=== PATIENT | female | born 1955 | race Caucasian/White ===

== ENCOUNTER 2018-06-14 18:27 | Emergency (ER) | payer BC, OTHER ==
[2018-06-14] MEDS ORDERED: NITROGLYCERIN 0.4MG SL TABLET #25 BTL SL ONE (18:49)
[2018-06-14] MEDS ORDERED: ASPIRIN 81 MG CHEWABLE TABLET PO ONE (18:49)
--- NOTE | 2018-06-14 18:58 | Emergency Department Record ---
History of Present Illness - General Chief Complaint: Chest Pain Stated Complaint: CHEST PAIN Time Seen by Provider: 06/14/18 18:40 Source: Patient Mode of Arrival: Ambulatory Limitations: No limitations - History of Present Illness Initial Comments: pt was at work when she felt a fluttering in her chest and heaviness along with sob. this waxed and waned all day. she has no hx of the same. no reent trips , surgeries or leg pain MD Complaint: Chest pain -: Hour(s) Onset: During rest Pain Location: Left chest Quality: Heaviness Consistency: Intermittent Improves With: Nothing Worsens With: Nothing Treatments Prior to Arrival: Aspirin Treatment Prior to Arrival Comment:: 3-81 mg aspirin - Related Data On Oral Contraceptives: No Home Medications Medication Instructions Recorded Confirmed Last Taken Ascorbic Acid [Vitamin C] 500 mg PO DAILY 06/14/18 06/14/18 06/14/18 Aspirin [Aspir-Low] 81 mg PO DAILY 06/14/18 06/14/18 06/14/18 Cholecalciferol (Vitamin D3) 5,000 unit PO DAILY 06/14/18 06/14/18 06/14/18 [Vitamin D3] Dapagliflozin Propanediol [Farxiga] 5 mg PO DAILY 06/14/18 06/14/18 06/14/18 Dulaglutide [Trulicity] 1 vial SQ WEEKLY 06/14/18 06/14/18 Unknown Fenofibrate,Micronized 134 mg PO DAILY 06/14/18 06/14/18 06/14/18 [Fenofibrate] Glucosam/George-Msm1/C/Olman/Bosw 1 tab PO DAILY 06/14/18 06/14/18 06/14/18 [Osteo Bi-Flex] Insulin Degludec [Tresiba 84 units SQ DAILY 06/14/18 06/14/18 06/13/18 Flextouch U-200] Lisinopril 10 mg PO DAILY 06/14/18 06/14/18 06/14/18 Metformin HCl 1,000 mg PO BID 06/14/18 06/14/18 06/14/18 Mercedes-3 Fatty Acids/Fish Oil [Fish 1 each PO DAILY 06/14/18 06/14/18 06/14/18 Oil 1,000 mg Capsule] Rosuvastatin Calcium [Crestor] 40 mg PO DAILY 06/14/18 06/14/18 06/14/18 Allergies Allergy/AdvReac Type Severity Reaction Status Date / Time tetracycline [TETRACYCLINE] Allergy Unknown passed out Verified 06/14/18 18:57 Travel Screening - Travel/Exposure Within Last 30 Days Have you traveled within the last 30 days?: No Review of Systems Reviewed: No additional complaints except as noted below Constitutional: Reports: As per HPI. Denies: Chills, Fever, Malaise, Night sweats, Weakness, Weight change Eyes: Reports: As per HPI. Denies: Eye discharge, Eye pain, Photophobia, Vision change ENT: Reports: As per HPI. Denies: Congestion, Dental pain, Ear pain, Epistaxis , Hearing loss, Throat pain Respiratory: Reports: As per HPI. Denies: Cough, Dyspnea, Hemoptysis, Stridor, Wheezes Cardiovascular: Reports: As per HPI. Denies: Arrhythmia, Chest pain, Dyspnea on exertion, Edema, Murmurs, Orthopnea, Palpitations, Paroxysmal nocturnal dyspnea, Rheumatic Fever, Syncope Endocrine: Reports: As per HPI. Denies: Fatigue, Heat or cold intolerance, Polydipsia, Polyuria Gastrointestinal: Reports: As per HPI. Denies: Abdominal pain, Constipation, Diarrhea, Hematemesis, Hematochezia, Melena, Nausea, Vomiting Genitourinary: Reports: As per HPI. Denies: Abnormal menses, Discharge, Dyspareunia, Dysuria, Frequency, Hematuria, Incontinence, Retention, Urgency Musculoskeletal: Reports: As per HPI. Denies: Arthralgia, Back pain, Gout, Joint swelling, Myalgia, Neck pain Skin: Reports: As per HPI. Denies: Bruising, Change in color, Change in hair/ nails, Lesions, Pruritus, Rash Neurological: Reports: As per HPI. Denies: Abnormal gait, Confusion, Headache, Numbness, Paresthesias, Seizure, Tingling, Tremors, Vertigo, Weakness Psychiatric: Reports: As per HPI. Denies: Anxiety, Auditory hallucinations, Depression, Homicidal thoughts, Suicidal thoughts, Visual hallucinations Hematological/Lymphatic: Reports: As per HPI. Denies: Anemia, Blood Clots, Easy bleeding, Easy bruising, Swollen glands Past Medical History - SOCIAL HISTORY Smoking Status: Never smoker Alcohol Use: None Drug Use: None - RESPIRATORY Hx Respiratory Disorders: No - CARDIOVASCULAR Hx Cardio Disorders: Yes Hx Vascular Disease: Yes - NEURO Hx Neuro Disorders: No - GI Hx GI Disorders: Yes Hx Reflux: Yes - Hx Genitourinary Disorders: No - ENDOCRINE Hx Endocrine Disorders: Yes Hx Diabetes: Yes Comment:: Goiter on neck - MUSCULOSKELETAL Hx Musculoskeletal Disorders: Yes Hx Arthritis: Yes - PSYCH Hx Psych Problems: No - HEMATOLOGY/ONCOLOGY Hx Hematology/Oncology Disorders: Yes Hx Cancer: Yes (skin) Family Medical History Any Significant Family History?: Yes Hx Alcohol Use: Mother, Brother/Sister Hx Cancer: Mother Hx HTN: Mother, Brother/Sister Hx Resp Disorders: Mother Physical Exam - General General Appearance: Alert, Oriented x3, Cooperative, No acute distress - Head Head exam: Normal inspection - Eye Eye exam: Normal appearance, PERRL, EOMI Pupils: Normal accommodation - ENT ENT exam: Normal exam, Mucous membranes moist, Normal external ear exam, Normal orophraynx Ear exam: Normal external inspection. negative: External canal tenderness Nasal Exam: Normal inspection. negative: Discharge, Sinus tenderness Mouth exam: Normal external inspection, Tongue normal Teeth exam: Normal inspection. negative: Dental caries Throat exam: Normal inspection. negative: Tonsillar erythema, Tonsillar exudate - Neck Neck exam: Normal inspection, Full ROM. negative: Tenderness - Respiratory Respiratory exam: Normal lung sounds bilaterally. negative: Respiratory distress - Cardiovascular Cardiovascular Exam: Regular rate, Normal rhythm, Normal heart sounds - GI/Abdominal GI/Abdominal exam: Soft, Normal bowel sounds. negative: Tenderness - Rectal Rectal exam: Deferred - exam: Deferred - Extremities Extremities exam: Normal inspection, Full ROM, Normal capillary refill. negative: Tenderness - Back Back exam: Reports: Normal inspection, Full ROM. Denies: Muscle spasm, Rash noted, Tenderness - Neurological Neurological exam: Alert, CN II-XII intact, Normal gait, Oriented X3 - Psychiatric Psychiatric exam: Normal affect, Normal mood - Skin Skin exam: Dry, Intact, Normal color, Warm Course Vital Signs 06/14/18 18:28 Temperature 98.1 F Pulse Rate 65 Respiratory 20 Rate Blood Pressure 151/92 Pulse Ox 96 - Reevaluation(s) Reevaluation #1: 06/14/18 23:40 ntg did not effect heaviness. it remained a 1/10 and later resolved Medical Decision Making - Lab Data Result diagrams: 06/14/18 18:45 12/20/18 18:45 Disposition Disposition: Discharge Clinical Impression: Palpitations, Chest pressure Disposition: Home, Self-Care Condition: (1) Good Instructions: Chest Pain (ED), Heart Palpitations (ED) Additional Instructions: follow up with dr nassar and family doctor marixa. return sooner if worse. continue aspirin. Referrals: LUCERO NASSAR M.D. [MEDICAL DOCTOR] - Forms: Patient Portal Access Quality - Quality Measures Quality Measures: N/A - Blood Pressure Screening Does Patient Have Any of the Following: Active Dx of HTN Blood Pressure Classification: Hypertensive Reading Systolic Measurement: 151 Diastolic Measurement: 92 Screening for High Blood Pressure: Patient Exclusion, Hx of HTN [[id number]]
[2018-06-14 19:10] LABS: BASO % 0.3 % (0-6); EOS % 2.2 % (0-6); GRAN % 49.7 % (47-80); HEMATOCRIT 42.4 % (35.0-47.0); HEMOGLOBIN 13.8 gm/dl (11.6-16.0); LYMPH % 40.7 % (16-45); MEAN CELL VOLUME 92.2 fl (81-97); MEAN CORPUSCULAR HGB CONC 32.5 g/dl (32-36); MEAN PLATELET VOLUME 10.8 fl (7.4-10.4); MONO % 7.1 % (0-9); PLATELET COUNT 202 K/uL (130-400); RED CELL DISTRIBUTION WIDTH 12.5 % (11.5-14.5); WHITE BLOOD COUNT W/O DIFF 6.5 K/uL (4.2-12.2)
[2018-06-14 19:24] LABS: BLOOD UREA NITROGEN 21 mg/dL (8-23); CREATININE 0.8 mg/dL (0.5-0.9); EST GLOMERULAR FILTRATION RATE > 60 mL/min; TOTAL PROTEIN 6.8 g/dL (6.6-8.7)
[2018-06-14 19:27] LABS: GLUCOSE,RANDOM 255 mg/dL (74-109)
[2018-06-14 19:29] LABS: ALB/GLOB RATIO 1.4 (1.1-1.8); ALKALINE PHOSPHATASE 49 U/L (35-104); ALT/SGPT 17 U/L (<33); AST/SGOT 17 U/L (10.0-35.0); CREATINE PHOSPHOKINASE 71 U/L (26-192)
[2018-06-14 19:31] LABS: NTpro B-NATRIURETIC PEPTIDE 30.91 pg/mL (<125)
[2018-06-14 19:42] LABS: THYROID STIMULATING HORMONE 3.79 uIU/mL (0.270-4.20)
--- NOTE | 2018-06-15 21:08 | RADIOLOGY REPORT ---
EXAM: CHEST 2 VIEWS HISTORY: CHEST HEAVINESS AND CHEST PRESSURE TODAY. TECHNIQUE: PA and lateral views. COMPARISON: Two-view chest 03/16/14. FINDINGS: Heart size appears stable, within normal limits. No definite acute infiltrate seen. No pleural effusion or pneumothorax evident. Minor spurring in the spine. IMPRESSION: MINOR SPURRING IN THE SPINE. NO DEFINITE ACUTE INFILTRATE SEEN. JOB NUMBER: [id number] MTDD
== END 2018-06-15 00:03 | disposition home or self-care (01) ==
LOC: ER 18:27
DX: R00.2 Palpitations (principal); R07.89 Other chest pain; R06.02 Shortness of breath; I10 Essential (primary) hypertension; E11.9 Type 2 diabetes mellitus without complications; Z79.84 Long term (current) use of oral hypoglycemic drugs
CPT/HCPCS: 71046; 80053; 82550; 82553; 83880; 84443; 84484; 85025; 85379; 93005; 93010; 99284